=== PATIENT | male | born 1950 | race Caucasian/White ===

== ENCOUNTER 2017-02-08 06:14 | Inpatient (IN) ==
[2017-02-08] MEDS ORDERED: CeFAZolin Syr 2,000MG/20 ML 2,000 MG/20 ML SYRINGE IVPB ONE (06:31)
[2017-02-08] MEDS ORDERED: Albuterol 2.5 MG/3 ML NEBULIZER IH ONE ×2 (06:31→13:18)
[2017-02-08] MEDS ORDERED: Ringers Solution, Lactated 1,000 ML IVC SCH (06:45)
--- NOTE | 2017-02-08 06:58 | Anesthesia Evaluation PreOp ---
Date of Encounter: 02/08/17 Time of Encounter: 06:55 - Past History Planned Operation: right fem-pop BPG Cardiac History: [place] (07/28), HTN, Hyperlipidemia, Cardiac Surgery (CABG 1999), Cardiac Stent (2012 and 07/28), Other (PAD, CAD) Pulmonary History: Smoker, Pack/yr (50) WATER PLUMBER History: Denies Any Significant HX Other Medical History: Denies Any Significant HX, Diabetes Type II Anesthesia History: No Prior Anesthetic Complications, Past Anesthesia (CABG, left LE angioplasty) Alcohol Use: none Drug use: none Medications and Allergies Aspirin [Lo-Dose Aspirin EC] 81 mg PO DAILY 01/07/17 [History] Atorvastatin Calcium 80 mg PO HS 01/07/17 [History] Docusate Sodium [Stool Softener] 100 mg PO DAILY PRN 01/07/17 [History] Esomeprazole Magnesium [Nexium] 40 mg PO DAILY 01/07/17 [History] Furosemide [Lasix] 20 mg PO DAILY 01/07/17 [History] Isosorbide MONOnitrate (24 HR) [Imdur] 30 mg PO DAILY 01/07/17 [History] Linagliptin [Tradjenta] 5 mg PO DAILY 01/07/17 [History] Lisinopril [Zestril] 2.5 mg PO DAILY 01/07/17 [History] Metoprolol Succinate 25 mg PO DAILY 01/07/17 [History] Tamsulosin HCl [Flomax] 0.4 mg PO DAILY 01/07/17 [History] Ticagrelor [Brilinta] 90 mg PO BID 01/07/17 [History] Insulin Glargine,Hum.rec.anlog [Lantus Solostar] 41 unit SQ BID 01/14/17 [ History] 3 Allergy/AdvReac Type Severity Reaction Status Date / Time Varenicline [From Chantix] AdvReac Nausea Verified 01/07/17 07:23 - Meds/Allergy Pre-op Review Medications Reviewed: Yes Allergies Reviewed: Yes Beta Blockers on Current Med List: Yes If Beta Blockers taken, Date/Time (Last Dose taken): 0400hr Anesthesia Results - Labs Laboratory Tests 02/02/17 02/02/17 17:07 17:07 Hgb 13.2 Hct 40.0 Plt Count 222 Sodium 139 Potassium 4.0 BUN 21 Creatinine 2.02 H - Imaging EKG: report reviewed (SINUS RHYTHM INFERIOR MYOCARDIAL INFARCTION, PROBABLY OLD ANTEROLATERAL MYOCARDIAL INFARCTION, OF INDETERMINATE AGE) Anesthesia Exam Selected Entries 02/08/17 06:38 Temperature 98.3 F Pulse Rate 91 Respiratory Rate 18 Blood Pressure 139/81 O2 Sat by Pulse Oximetry 99 Weight: 96kg NPO (# of Hours): 8 - HEENT Pupil (Motor): EOMI Mallampati: II Teeth: Edentulous - WATER PLUMBER LOC: Oriented WATER PLUMBER Motor: Normal RUE, Normal LUE, Normal RLE, Normal LLE, Normal Face WATER PLUMBER Sensory: Normal: RUE, LUE, RLE, LLE, Face - Cardiac Rhythm: Regular Murmur: None - Pulmonary Breath Sounds: bilateral Clear Respiratory Effort: Symmetrical Anesthesia Assess/Plan ASA Score: 3 Modified [place] Scale for Level of Consciousness: Cooperative, oriented, and tranquil Anesthetic Plan: General Monitoring Plan: Standard Monitors, A-Line Recovery Plan: PACU (Discussed risks of GA, meera and possible need for blood. Agrees to proceed.)
[2017-02-08] MEDS ORDERED: *HR* Succinylcholine 200 MG/10 ML VIAL IVP ONE (07:04)
[2017-02-08] MEDS ORDERED: Lidocaine -MPF 2% 2 ML VIAL ONE ×2 (07:04→11:52)
[2017-02-08] MEDS ORDERED: Dexamethasone 4 MG/ML VIAL ONE ×2 (07:04→11:10)
[2017-02-08] MEDS ORDERED: *HR* Propofol 200 MG/20 ML VIAL IVP ONE (07:05)
[2017-02-08] MEDS ORDERED: *HR* Heparin 5,000 UNIT/ML VIAL ONE ×2 (07:05→16:27)
[2017-02-08] MEDS ORDERED: Ketamine *HR* 500 MG/10 ML MDV ONE (07:13)
[2017-02-08] MEDS ORDERED: Heparin 1,000 UNITS/500 mL NS 1,000 ML ONE (07:16)
[2017-02-08] MEDS ORDERED: *HR* Vasopressin 20 UNIT/ML VIAL ONE (07:34)
[2017-02-08] MEDS ORDERED: Acetaminophen IV 1,000 MG/100 ML INFUS..BTL ONE (07:34)
--- NOTE | 2017-02-08 07:35 | History & Physical Report ---
Date of Encounter: 02/08/17 Time of Encounter: 07:25 24 Hour HP Update - Instructions Instructions: If the History and Physical is less than 30 days old and was completed prior to A.M. admission and or procedure and has NOT been updated on calendar day of procedure please complete this update prior to performing procedure. - Update Patient reports changes in Medical Condition: No Changes in examination, assessment, or condition: No Changes in Medication: No Preop tests/diagnostics Reviewed: Yes Pre-Op MRSA Screen: Negative Surgery Remains Indicated: Yes Consent for Planned Operative Procedure(s) Verified: Yes - Pre-Operative Checklist Preoperative Checklist Indicated: Yes Prophylactic Antibiotic Ordered: Yes Home Medications Include Beta Arleth: Yes Beta Arleth Taken Today (Day of Surgery): Yes Beta Arleth Taken Yesterday (Day Prior to Surgery): Yes Is VTE Prophylaxis Indicated?: Yes
[2017-02-08] MEDS ORDERED: *HR* Midazolam HCl 2 MG/2 ML VIAL ONE (07:45)
[2017-02-08] MEDS ORDERED: EPHEDrine 50 MG/ML VIAL ONE (08:14)
[2017-02-08] MEDS ORDERED: *HR* Meperidine 25 MG/ML SYRINGE IVP PRN (08:50)
[2017-02-08] MEDS ORDERED: *HR* Promethazine 25 MG/ML VIAL IVP PRN (08:50)
[2017-02-08] MEDS ORDERED: Ondansetron 4 MG/2 ML VIAL ONE (11:10)
--- NOTE | 2017-02-08 11:14 | Anesthesia Procedures ---
Date of Encounter: 02/08/17 Time of Encounter: 07:55 Procedures: Anesthesia - Arterial Line Consent obtained: written consent Time out performed: Yes Size (Gauge): 22 Technique Used: sterile prep, direct puncture technique Post-Procedure: line taped into place, dry sterile dressing placed Patient tolerated procedure: no complications Complications: none Site: Radial L Vitals: vss performed by ROGELIO merino post induction
[2017-02-08] MEDS ORDERED: Neostigmine Methylsulfate 3 MG/3 ML SYRINGE ONE (11:42)
--- NOTE | 2017-02-08 12:12 | Operative Note ---
Date of procedure: 02/08/17 Pre-op diagnosis: right leg PAD/claudication Post-op diagnosis: same Procedure: right femoral- AK popliteal bypass with reversed GSV right popliteal endarterectomy Complications: none Anesthesia: GETA Surgeon: Alfonso Blanco Co-Surgeon: Arturo Cid Estimated blood loss (cc): 100 Specimen: none Condition: stable Disposition: PACU Procedure in Detail: History Yaw Zuniga is a 66-year-old white male who was seen in the outpatient clinic because of lower extremity claudication. He had recently undergone angiography with successful left lower extremity endovascular intervention. He was found to have a right superficial femoral artery chronic total occlusion. Attempts at recannulating this vessel were unsuccessful and so he now comes to the operating room for surgical reconstruction. Procedure After informed consent was obtained the patient was taken to the operating room. Arterial line was placed. General endotracheal anesthesia was established. The right lower extremity was sterilely prepped and draped. A 2 team surgical approach was utilized due to the patient's ongoing multiple medical problems including diabetes and coronary heart disease as well as to expedite intraoperative decision-making and to reduce anesthetic time. An incision was made in the right groin to dissect the common femoral artery. This area is found to be markedly inflamed. A rather tedious dissection was then necessary. His panniculus also contributed to difficulty with exposure. After this was ultimately achieved and selective control was obtained of the femoral artery and the femoral bifurcation attention was directed to the greater saphenous vein. This was dissected in the proximal area. This vein was found to be soft and normal in size and thought usable for use for bypass grafting. A second incision was then made at the above-knee popliteal area. Dissection was carried down to the neurovascular bundle area. The artery was dissected and controlled proximally and distally. A third incision was made in order to retract the vein from the groin to the knee area. The vein was able to be dissected and then was divided at the knee and then removed. It was flushed and dilated and found to be suitable for use as conduit. A subsartorial tunnel was then created. The patient was then given heparin intravenously with a dose of 5000 units. A longitudinal arteriotomy was made over the distal aspect of the anterior common femoral artery. The vein was anastomosed in end to side fashion placing the vein in a reversed orientation. After this was accomplished the clamps removed and the vein was distended. It was marked for correct orientation and then passed through the tunnel. The vein was then clamped at the groin and the distal anastomosis was fashioned. An arteriotomy was made on the popliteal artery. A very thick rubbery-type plaque was encountered. Therefore a popliteal artery endarterectomy was performed. The plaque was removed. The patient excellent backflow. A patch was not necessary due to the diameter of the vein. Therefore the end of vein to side of artery anastomosis was made in the above- the-knee popliteal artery after the endarterectomy. 6-0 Prolene suture was utilized for this anastomosis. After appropriate backbleeding and flushing the graft was opened and pulsatile flow was achieved into the right leg. The patient then had the area inspected with Doppler signals. There was an excellent posterior tibial Doppler signal at the ankle and the vein graft was pulsatile. The incisions were then irrigated with antibiotic containing solution. Hemostasis was achieved. The wounds were then closed in layers using absorbable suture. Dry sterile dressings were applied. The patient was extubated in the operating room and taken to the recovery room in stable condition.
[2017-02-08] MEDS: *HR* HYDROmorphone (PF) 1 MG/ML SYRINGE IVP PRN ×2 (12:43→12:48)
[2017-02-08] MEDS ORDERED: Albuterol 2.5 MG/3 ML NEBULIZER ONE (12:53)
--- NOTE | 2017-02-08 13:26 | Anesthesia Evaluation Post Op ---
Date of Encounter: 02/08/17 Time of Encounter: 13:25 - Vital Signs Vital Signs: Vital Signs/O2 Sat/Glucose, Most Current Temp Pulse Resp BP Pulse Ox 02/08/17 13:13 66 18 115/59 94 02/08/17 13:03 71 16 97/56 97 02/08/17 12:53 98.1 F 68 20 109/64 94 02/08/17 12:43 70 22 114/59 94 02/08/17 12:33 74 20 125/65 95 02/08/17 12:23 98.0 F 75 20 148/63 98 - Lungs Lungs: Clear Ascult./Percussion - Airway Airway: Non-obstructed - Cardiovascular Regular Rate - Mental Status Mental Status: Alert & Oriented, Answers Appropriately - Pain Pain Scale: 1 - Nausea Vomiting Nausea Vomiting: Not Present - Hydration Hydration: NPO - Discharge PostOp Status: Transfer Patient to floor
[2017-02-08] MEDS ORDERED: tiZANidine 4 MG TABLET PO PRN (13:38)
[2017-02-08] MEDS ORDERED: Naloxone 0.4 MG/ML INJ IVP PRN (13:38)
[2017-02-08] MEDS ORDERED: Nitroglycerin 0.4 MG TAB.SUBL SL PRN (13:38)
[2017-02-08] MEDS ORDERED: *HR* Morphine 2 MG/ML SYRINGE IVP PRN (13:38)
[2017-02-08] MEDS ORDERED: Ondansetron 4 MG/2 ML VIAL IVP PRN (13:38)
[2017-02-08] MEDS ORDERED: Sennosides/Docusate Sodium TABLET PO PRN (13:38)
[2017-02-08] MEDS ORDERED: Acetaminophen 325 MG TABLET PO PRN (13:38)
[2017-02-08] MEDS: CeFAZolin Premix DUPLEX 2,000 MG/50 ML BAG IVPB SCH (16:03)
--- NOTE | 2017-02-08 17:09 | Operative Note ---
Date of procedure: 02/08/17 Pre-op diagnosis: Peripheral vascular disease with disabling claudication Post-op diagnosis: same Procedure: 1. Right femoral rot above knee popliteal artery bypass with reversed right greater saphenous vein. 2. Right popliteal artery endarterectomy. Complications: None Anesthesia: GETA Surgeon: Arturo Cid Co-Surgeon: Alfonso Blanco Estimated blood loss (cc): 100 Specimen: None Condition: stable Disposition: PACU Procedure in Detail: Indications: The patient is a 66 year od male with a history of hypertension, hyperlipidemia and tobacco abuse. He presented with disabling claudication. He was found to have a left superficial femoral artery occlusion by angiogram. Revascularization was recommended for relief of his symptoms. Procedure: The patient was identified in the preoperative area. The risks, benefits, and alternatives of the procedure were discussed. All questions were answered. The patient was taken to the operating room and placed in supine position on the operating room table. After the induction of general endotracheal anesthesia, he was cleaned and draped in normal sterile fashion. A two surgeon approach was utilized for this procedure in order to minimize anesthetic time and the risks for complications due to the patients comorbid conditions. In addition, a two surgeon approach was used for intraoperative decision making. An oblique incision was made over the rightt groin sharply. Hemostasis was obtained with electrocautery. Through a process of blunt, sharp, and electrocautery dissection, the left femoral vessels were dissected circumferentially and surrounded with vessel loops. A longitudinal incision was made on the left medial distal thigh sharply. Hemostasis was obtained with electrocautery. Through a process of blunt, sharp, and electrocautery dissection, the right above-knee popliteal artery was dissected proximally and distally and surrounded with vessel loops. Multiple skin incisions were made along the thigh between the two incisions along the saphenous vein. The saphenous vein was completely mobilized with blunt, sharp, and electrocautery dissection. The side branches were clamped, divided, tied off with 3-0 and 4-0 silk sutures. Distally, the vein was mobilized in the calf, clamped, divided, tied off with silk suture ligature and then further completely mobilized through the incisions. The vein was flushed and noted to be adequate in size and consistency for bypass. A tunnel was created between the femoral and popliteal artery incisions. The vein was reversed. Tension was applied to the femoral vessel loops. An arteriotomy was made in the common femoral artery and the vein graft was cut to fit the defect. The graft was anastamosed with a running 6-0 Prolene. After completing the closure, the vessels were reperfused and pulsatile flow was noted through the vein. The vein was marked without torsion and then it was tunneled between the two incisions. After tunneling, the vein was unclamped and was noted to have strong pulsatile flow once again. It was re-clamped. The popliteal vessels were occluded and a longitudinal arteriotomy was made in the popliteal artery. A partially occlusive plaque was encountered. A right popliteal endarterectomy was performed by Dr. Blanco. Upon removal of the plaque, no elevated flaps were noted. The distal end of the graft was sutured in place with a running 6-0 Prolene,. The distal arterial anastomosis was completed and prior to completing the closure, the popliteal vessels were flushed and reoccluded. Heparinized saline was infused into the lumen. The anastamosis was tied and then flow was restored. Polyphasic signals were noted distal to the distal anastomosis as well as at the posterior tibial artery. Wounds were irrigated with antibiotic-containing saline. Meticulous hemostasis was obtained throughout the wound with electrocautery. Wounds were reapproximated with layers of 2-0 and 3-0 Vicryl. Skin was reapproximated with 4-0 Vicryl. Sterile dressing was applied. The patient was extubated and taken to recovery room in stable condition.
[2017-02-08] MEDS: *HR* Morphine 2 MG/ML SYRINGE IVP PRN (17:39)
[2017-02-08] MEDS: *HR* HYDROcodone/Acet 5/325 mg TABLET PO PRN (19:16)
[2017-02-08] MEDS ORDERED: Insulin DETEMIR 100 UNIT/ML X5UNITS SQ SCH (21:00)
[2017-02-08] MEDS: Fluticasone Propionate Nasal 50 MCG/SPRAY BOTTLE NS SCH (21:11)
[2017-02-08] MEDS: *HR* Ticagrelor 90 MG TABLET PO SCH (21:12)
[2017-02-08] MEDS: Levalbuterol 1 PUFF INHALER IH SCH (21:43)
[2017-02-08] MEDS: Budesonide/Formoterol 80/4.5 MDI IH SCH (21:43)
[2017-02-08] MEDS: Insulin DETEMIR 100 UNIT/ML X5UNITS SQ SCH (22:55)
[2017-02-09] MEDS: *HR* Morphine 2 MG/ML SYRINGE IVP PRN (01:17)
[2017-02-09] MEDS: CeFAZolin Premix DUPLEX 2,000 MG/50 ML BAG IVPB SCH ×2 (02:18→09:57)
[2017-02-09 05:15] LABS: Basophils % 0.1 %; Hematocrit 29.2 % (37.5-50.1); Immature Granulocytes % 0.4 % (0-4); Lymphocytes # 0.9 K/mcL (0.6-4.6); Lymphocytes % 6.6 %; Mean Corpuscular HGB Conc 33.2 g/dL (31.6-35.5); Mean Corpuscular Hemoglobin 29.8 pg (28.0-33.3); Mean Corpuscular Volume 89.8 fL (83.0-100.0); Mean Platelet Volume 10.8 fL (9.4-12.4); Monocytes # 0.9 K/mcL (0.0-1.3); Monocytes % 6.6 %; Neutrophils # 11.5 K/mcL (1.6-8.9); Platelet Count 190 K/mcL (140-400); Red Blood Count 3.25 M/mcL (4.19-5.50); Red Cell Distribution Width 13.2 % (11.5-14.5); Segmented Neutrophils % 86.3 %
[2017-02-09 05:17] LABS: Hemoglobin 9.7 g/dL (12.9-16.9)
[2017-02-09 05:38] LABS: Calcium 8.2 mg/dL (8.6-10.8)
[2017-02-09 05:43] LABS: Potassium 4.8 mEq/L (3.5-4.5)
[2017-02-09] MEDS: Metoprolol XL (24 HR) Succ 25 MG TAB.ER.24H PO SCH (08:06)
[2017-02-09] MEDS: Furosemide 20 MG TABLET PO SCH (08:06)
[2017-02-09] MEDS: Aspirin Enteric Coated 81 MG Tablet PO SCH (08:06)
[2017-02-09] MEDS: *HR* HYDROcodone/Acet 5/325 mg TABLET PO PRN ×2 (08:06→13:00)
[2017-02-09] MEDS: Isosorbide MONOnitrate (24 HR) 30 MG TAB.ER.24H PO SCH (08:06)
[2017-02-09] MEDS: *HR* Ticagrelor 90 MG TABLET PO SCH ×2 (08:17→21:44)
[2017-02-09] MEDS: Fluticasone Propionate Nasal 50 MCG/SPRAY BOTTLE NS SCH ×3 (08:28→20:10)
[2017-02-09] MEDS: Insulin DETEMIR 100 UNIT/ML X5UNITS SQ SCH ×2 (08:29→21:51)
[2017-02-09] MEDS ORDERED: CeFAZolin Premix DUPLEX 2,000 MG/50 ML BAG IVPB SCH (09:00)
[2017-02-09] MEDS: Levalbuterol 1 PUFF INHALER IH SCH ×2 (11:41→21:17)
[2017-02-09] MEDS: Budesonide/Formoterol 80/4.5 MDI IH SCH ×2 (11:41→21:17)
--- NOTE | 2017-02-09 13:30 | Discharge Summary ---
Date of Encounter: 02/10/17 Time of Encounter: 11:24 - Discharge Diagnosis (1) PAD (peripheral artery disease) Priority: Primary Status: Chronic Comments: Known bilateral lower extremity claudication. Left lower extremity was treated with endovascular means. Right lower extremity required open revascularization with femoral popliteal bypass graft. The patient underwent a right femoral- popliteal bypass graft for popliteal artery endarterectomy on 02/08/2017 (2) Diabetes Priority: Secondary Status: Chronic Comments: Diabetes is under medical control patient was placed on a moderate scale sliding scale insulin coverage during his hospitalization. Qualifiers: Diabetes mellitus type: type 2 Diabetes mellitus complication status: with circulatory complication Diabetes mellitus complication detail: with peripheral angiopathy without gangrene Diabetes mellitus rat exterminator insulin use : with rat exterminator use Qualified Code(s): E11.51 - Type 2 diabetes mellitus with diabetic peripheral angiopathy without gangrene; Z79.4 - assisted (current ) use of insulin; Z79.4 - assisted (current) use of insulin; Z79.4 - tank terminal gauger (current) use of insulin; Z79.4 - assisted (current) use of insulin (3) COPD (chronic obstructive pulmonary disease) Priority: Secondary Status: Chronic Comments: Patient is under medical control Qualifiers: COPD type: unspecified COPD Qualified Code(s): J44.9 - Chronic obstructive pulmonary disease, unspecified - Discharge Medications Prescriptions: HYDROcodone/Acet 5/325 mg [Winfield 5-325 mg] 1 tab PO TID PRN #20 tablet PRN Reason: Pain Home Medications: Aspirin [Lo-Dose Aspirin EC] 81 mg PO DAILY 01/07/17 [History] Atorvastatin Calcium 80 mg PO HS 01/07/17 [History] Docusate Sodium [Stool Softener] 100 mg PO DAILY PRN 01/07/17 [History] Esomeprazole Magnesium [Nexium] 40 mg PO DAILY 01/07/17 [History] Furosemide [Lasix] 20 mg PO DAILY 01/07/17 [History] Isosorbide MONOnitrate (24 HR) [Imdur] 30 mg PO DAILY 01/07/17 [History] Linagliptin [Tradjenta] 5 mg PO DAILY 01/07/17 [History] Lisinopril [Zestril] 2.5 mg PO DAILY 01/07/17 [History] Metoprolol Succinate 25 mg PO DAILY 01/07/17 [History] Tamsulosin HCl [Flomax] 0.4 mg PO DAILY 01/07/17 [History] Ticagrelor [Brilinta] 90 mg PO BID 01/07/17 [History] Insulin Glargine,Hum.rec.anlog [Lantus Solostar] 40 unit SQ BID 01/14/17 [ History] Acetaminophen [Tylenol] 650 mg PO Q4H PRN 02/08/17 [History] Ergocalciferol (VITAMIN D2) [Vitamin D2] 50,000 unit PO WE 02/08/17 [History] Fluticasone Propionate Nasal [Flonase] 1 spray NS BID 02/08/17 [History] Fluticasone/Salmeterol [Advair 250-50 Diskus] 1 puff IH BID 02/08/17 [History] Levalbuterol Tartrate [Levalbuterol Tartrate Hfa] 2 puff IH BID 02/08/17 [ History] Mometasone Furoate [Nasonex] 1 spr NS DAILY 02/08/17 [History] Nitroglycerin 0.4 mg PO Q5M PRN 02/08/17 [History] Polyethylene Glycol 3350 [MiraLAX] 17 gm PO DAILY PRN 02/08/17 [History] Sennosides/Docusate Sodium [Senna-S Tablet] 1 tab PO BID PRN 02/08/17 [History] Tizanidine HCl 4 mg PO HS PRN 02/08/17 [History] HYDROcodone/Acet 5/325 mg [[place] 5-325 mg] 1 tab PO TID PRN #20 tablet 02/10/17 [Rx] Allergies/Adverse Reactions: 3 Allergy/AdvReac Type Severity Reaction Status Date / Time Varenicline [From Chantix] AdvReac Nausea Verified 02/08/17 07:13 Procedures/tests Complete & Pending: Procedures Performed prior 72 hours Category Date Time Status ECG 12 lead ECG [ECG] Routine Y 02/08/17 06:53 Completed Date of admission: 02/08/17 13:33 Primary care physician: PCP NONE Consults: None Procedure(s) Performed: Right femoral to above-knee popliteal artery bypass graft with reverse greater saphenous vein and popliteal artery endarterectomy Discharging clinician: Alfonso J Bella Anticipated date of discharge: 02/10/17 - Patient Status Disposition: Home, Self-Care Condition: Good Functional capacity at discharge: uses cane/walker Overall status at discharge: patient is progressing back to baseline - Discharge Instructions Follow Up With: Elfego Villalba MD [Non-Partnered Physician] - 02/17/17 8:40 am NONE,PCP [Primary Care Provider] - Alfonso Blanco MD [Partnered Physician] - Additional Instructions: Patient is to keep her surgical incisions dry for 5 days following surgery No lifting greater than 10 pounds. No automobile driving. No manual labor. Patient is to resume his usual home medications. Patient is encouraged to walk a minimum of 20 minutes twice a day. Patient is encouraged to keep right lower extremity elevated while sitting postoperatively to decrease edema of the right lower extremity. Patient is to use incentive spirometer 10 times an hour while awake at home for the next 2 weeks. - Diet and Activity Activity: increase activity as tolerated Diet: diabetic diet - Hospital Course Hospital course: Mr. Zuniga is a 66 year old male With significant right lower extremity vascular occlusive disease. He underwent a right femoral-popliteal bypass graft and popliteal artery endarterectomy for lifestyle limiting claudication. The patient tolerated the procedure well. The patient had oozing from the popliteal area incision requiring treatment. He had a warm pink right foot. Patient excellent Doppler signal over the posterior tibial artery. The patient had urinary retention on the afternoon of postoperative day #1. The Vazquez catheter needed to be reinserted. It was then removed on the morning postoperative day #2 he was then able to urinate spontaneously inadequately. Patient was also able to ambulate freely in the room as well as in the hallway. Postoperative care including wound care and medications as well as activities were discussed with the patient prior to discharge. - Time Spent with Patient Total time spent providing and/or coordinating discharge services: Exam Vital Signs, Last 4 Hours Temp Pulse Resp BP Pulse Ox 02/09/17 13:05 77 02/09/17 11:52 97.5 F L 94 17 94/56 99 02/09/17 11:43 18 97 General: Present: Conversant, No Apparent Distress, Well developed, Well nourished HEENT: Present: Atraumatic Cardiac: Present: Reg Rate and Rhythm Lungs: Present: Normal Breath Sounds Neuro: Present: Alert and responsive, No focal deficits noted, Cranial nerves grossly intact Abdomen: Present: Soft, Non-tender Vascular: Present: Normal capillary refill, Color/Temperature (Right foot is warm and pink). Absent: Cyanosis Skin: Present: No rashes noted on visualized skin - VTE Documentation of Mechanical Device: Intermittent pneumatic compression device
[2017-02-09] MEDS ORDERED: Dextrose Gel 15 GM PO PRN ×2 (17:28)
[2017-02-09] MEDS ORDERED: *HR* Dextrose 50 % in Water (Syg) 50 ML SYRINGE IVP PRN (17:28)
[2017-02-09] MEDS ORDERED: D5% in Water 1,000 ML IVC PRN (17:28)
--- NOTE | 2017-02-09 18:12 | Vascular/[facility] Progress Note ---
Date of Encounter: 02/09/17 Time of Encounter: 13:00 - Assessment and plan (1) PAD (peripheral artery disease) Current Visit: Yes Status: Chronic Successful revascularization of right lower extremity. (2) Diabetes Current Visit: Yes Status: Chronic Patient will be placed on a moderate level sliding scale insulin coverage during his hospitalization. Qualifiers: Diabetes mellitus type: type 2 Diabetes mellitus complication status: with circulatory complication Diabetes mellitus complication detail: with peripheral angiopathy without gangrene Diabetes mellitus intermediate frame tender insulin use : with jail use Qualified Code(s): E11.51 - Type 2 diabetes mellitus with diabetic peripheral angiopathy without gangrene; Z79.4 - intermodal truck driver (current ) use of insulin; Z79.4 - correction (current) use of insulin; Z79.4 - correction (current) use of insulin; Z79.4 - correction (current) use of insulin (3) COPD (chronic obstructive pulmonary disease) Current Visit: Yes Status: Chronic Patient's COPD is stable. Qualifiers: COPD type: unspecified COPD Qualified Code(s): J44.9 - Chronic obstructive pulmonary disease, unspecified (4) Postoperative urinary retention Current Visit: Yes Status: Acute Patient has been able to urinate only a small amount of urine proximally 20 mL. Bladder scan shows greater than 500 mL of urine. Therefore Vazquez catheter be reinserted late this afternoon and will be left in position overnight to be removed tomorrow morning and reevaluation of spontaneous urination. - Subjective Interval history: Mr. Zuniga is a 66-year-old white male who is status post a right femoral- popliteal bypass graft and popliteal artery endarterectomy. He has had an uneventful evening. He is at bedrest now. He has had some oozing from the popliteal artery incision has been managed with compression and frequent dressing changes. He states his right foot is feeling better following surgery. Patient was unable to urinate later in the day and required reinsertion of his Vazquez catheter. Vital Signs, Last 4 Hours Pulse 02/09/17 15:30 94 - Physical Examination General: Present: Conversant HEENT: Present: Atraumatic Neck: Absent: JVD Cardiac: Present: Reg Rate and Rhythm Lungs: Present: Normal Breath Sounds Neuro: Present: Alert and responsive, No focal deficits noted Vascular: Present: Normal capillary refill, Color/Temperature (The right foot is warm and pink. It has excellent Doppler signals over the posterior tibial artery. It shows signs of marked improvement in perfusion since surgery.) Abdomen: Present: Soft, Non-tender - VTE Documentation of Mechanical Device: Intermittent pneumatic compression device Results 02/09/17 04:48 02/09/17 04:48 Lab Results, Last 24 hours 02/09/17 02/09/17 04:48 04:48 WBC 13.3 H Hgb 9.7 L D Hct 29.2 L Plt Count 190 Sodium 133 L Potassium 4.8 H Chloride 103 Carbon Dioxide 22 BUN 26 Creatinine 1.90 H Glucose 241 H Calcium 8.2 L Consult Discharge Plan - Plan Additional Instructions: Patient is to keep her surgical incisions dry for 5 days following surgery No lifting greater than 10 pounds. No automobile driving. No manual labor. Patient is to resume his usual home medications. Patient is encouraged to walk a minimum of 20 minutes twice a day. Patient is encouraged to keep right lower extremity elevated while sitting postoperatively to decrease edema of the right lower extremity. Referrals: Elfego Villalba MD [Non-Partnered Physician] - 02/17/17 8:40 am NONE,PCP [Primary Care Provider] - Alfonso Blanco MD [Partnered Physician] -
[2017-02-09] MEDS: Insulin LISPRO 300 UNITS/3 ML VIAL SQ SCH (18:22)
[2017-02-09] MEDS ORDERED: Insulin LISPRO 300 UNITS/3 ML VIAL SQ SCH (21:00)
[2017-02-10] MEDS: *HR* HYDROcodone/Acet 5/325 mg TABLET PO PRN ×2 (00:36→13:23)
[2017-02-10] MEDS: Levalbuterol 1 PUFF INHALER IH SCH (08:06)
[2017-02-10] MEDS: Budesonide/Formoterol 80/4.5 MDI IH SCH (08:06)
[2017-02-10] MEDS: Aspirin Enteric Coated 81 MG Tablet PO SCH (08:47)
[2017-02-10] MEDS: Furosemide 20 MG TABLET PO SCH (08:47)
[2017-02-10] MEDS: Isosorbide MONOnitrate (24 HR) 30 MG TAB.ER.24H PO SCH (08:47)
[2017-02-10] MEDS: Metoprolol XL (24 HR) Succ 25 MG TAB.ER.24H PO SCH (08:47)
[2017-02-10] MEDS: Insulin LISPRO 300 UNITS/3 ML VIAL SQ SCH ×2 (08:49→11:18)
[2017-02-10] MEDS: Fluticasone Propionate Nasal 50 MCG/SPRAY BOTTLE NS SCH ×2 (08:50)
[2017-02-10] MEDS: Insulin DETEMIR 100 UNIT/ML X5UNITS SQ SCH (08:53)
[2017-02-10] MEDS: *HR* Ticagrelor 90 MG TABLET PO SCH (09:54)
[2017-02-10 11:02] VITALS: BP 93/65
--- NOTE | 2017-02-10 16:55 | Physician Discharge Referral ---
Home Health/Hosp Referral Info Transfer to: Home Health Attending Provider: Dr. Blanco Provider in Charge Post Discharge: PCP - Diagnosis (1) PAD (peripheral artery disease) Status: Chronic (2) Diabetes Priority: Primary Status: Acute (3) COPD (chronic obstructive pulmonary disease) Priority: Secondary Status: Chronic - Respiratory Orders Smoking Cessation: Smoking cessation has been advised. For more information, call the [place] Tobacco Quit Line at 0-884-OJLJ-NOW. - Activity Activity Orders: Up ad stephan - Services Needed Following services are medically necessary services: Home Health Aide, Physical Therapy - Transfer Medications Prescriptions: HYDROcodone/Acet 5/325 mg [[place] 5-325 mg] 1 tab PO TID PRN #20 tablet PRN Reason: Pain Home Medications: Aspirin [Lo-Dose Aspirin EC] 81 mg PO DAILY 01/07/17 [History] Atorvastatin Calcium 80 mg PO HS 01/07/17 [History] Docusate Sodium [Stool Softener] 100 mg PO DAILY PRN 01/07/17 [History] Esomeprazole Magnesium [Nexium] 40 mg PO DAILY 01/07/17 [History] Furosemide [Lasix] 20 mg PO DAILY 01/07/17 [History] Isosorbide MONOnitrate (24 HR) [Imdur] 30 mg PO DAILY 01/07/17 [History] Linagliptin [Tradjenta] 5 mg PO DAILY 01/07/17 [History] Lisinopril [Zestril] 2.5 mg PO DAILY 01/07/17 [History] Metoprolol Succinate 25 mg PO DAILY 01/07/17 [History] Tamsulosin HCl [Flomax] 0.4 mg PO DAILY 01/07/17 [History] Ticagrelor [Brilinta] 90 mg PO BID 01/07/17 [History] Insulin Glargine,Hum.rec.anlog [Lantus Solostar] 40 unit SQ BID 01/14/17 [ History] Acetaminophen [Tylenol] 650 mg PO Q4H PRN 02/08/17 [History] Ergocalciferol (VITAMIN D2) [Vitamin D2] 50,000 unit PO WE 02/08/17 [History] Fluticasone Propionate Nasal [Flonase] 1 spray NS BID 02/08/17 [History] Fluticasone/Salmeterol [Advair 250-50 Diskus] 1 puff IH BID 02/08/17 [History] Levalbuterol Tartrate [Levalbuterol Tartrate Hfa] 2 puff IH BID 02/08/17 [ History] Mometasone Furoate [Nasonex] 1 spr NS DAILY 02/08/17 [History] Nitroglycerin 0.4 mg PO Q5M PRN 02/08/17 [History] Polyethylene Glycol 3350 [MiraLAX] 17 gm PO DAILY PRN 02/08/17 [History] Sennosides/Docusate Sodium [Senna-S Tablet] 1 tab PO BID PRN 02/08/17 [History] Tizanidine HCl 4 mg PO HS PRN 02/08/17 [History] HYDROcodone/Acet 5/325 mg [[place] 5-325 mg] 1 tab PO TID PRN #20 tablet 02/10/17 [Rx] Allergies/Adverse Reactions: 3 Allergy/AdvReac Type Severity Reaction Status Date / Time Varenicline [From Chantix] AdvReac Nausea Verified 02/08/17 07:13 Certification: Further, I certify that my clinical findings support that this patient is homebound (i.e. absences from home require considerable and taxing effort and are for medical reasons or catholic services or infrequently or short duration when for other reasons) because: Homebound Reason: Patient requires assistance of a person or device to safely leave home, Post-surgery restriction and or conditions limit ability to leave home Attestation: My signature below is to certify that this patient is under my care and that I, or nurse practitioner, or a physician's contact lens assistant working with me, has a face-to -face encounter with this patient.
--- NOTE | 2017-02-11 15:41 | Electrocardiograph Report ---
[place] [id number] Test Date: 2017-02-08 Pat Name: Yaw Zuniga Department: 106 Room: 05 Gender: Manufacturing Scheduler: DARIUS : 1950 Requested By: Alfonso Blanco Order Number: [id number] Reading MD: Jordan Garnett Measurements Intervals [place] Rate: 83 P: 62 MS: 185 QRS: 36 QRSD: 122 T: 120 QT: 392 QTc: 432 Interpretive Statements SINUS RHYTHM INFERIOR MYOCARDIAL INFARCTION, PROBABLY OLD ANTEROLATERAL MYOCARDIAL INFARCTION, OF INDETERMINATE AGE Electronically Signed On 02-11-2017 15:39:31 EST by Jordan Garnett
== END 2017-02-10 14:51 | disposition home or self-care (01) | DRG 253 ==
LOC: SAMDAY 06:14 → 2NNU 13:33
PROVIDERS: ADMIT Surgery Vascular Surgery; ATTEND Surgery Vascular Surgery